=== PATIENT | male | born 1990 | race Caucasian/White ===

== ENCOUNTER → 2017-10-02 10:45 | Outpatient (CLI) | payer OTHER, SELFPAY ==
[2017-10-02 12:03] LABS: Rheumatoid Factor < 10.0 IU/mL (<15)
[2017-10-02 12:04] LABS: Vitamin B12 602 pg/mL (211-911)
[2017-10-03 12:08] LABS: SJOGREN'S Anti-SS-A test < 0.2 AI (0.0-0.9); SJOGREN'S Anti-SS-B test < 0.2 AI (0.0-0.9)
[2017-10-03 16:20] LABS: ANTINUCLEAR ANTIBODIES DIRECT Negative (Negative)
[2017-10-04 08:11] LABS: Albumin 4.4 g/dL (2.9-4.4); Albumin, Ur 29.9 % (.); Alpha-1-Globulin, Ur 1.8 % (.); Alpha-1-Globulins 0.2 g/dL (0.0-0.4); Alpha-2-Globulins 0.6 g/dL (0.4-1.0); Alpha-2-Globulins, Ur 18.9 % (.); Beta Globulin, Ur 25.8 % (.); Cytoplasmic Ab (C-ANCA) <1:20 titer (Neg:<1:20); Gamma Globulin, Ur 23.6 % (.); Immunoglobulin A 157 mg/dL (90-386); Immunoglobulin G 998 mg/dL (700-1600); Immunoglobulin M 45 mg/dL (20-172); M-Spike, Ur % Not Observed % (Not Observed); PROEL- TOTAL PROTEIN 7.2 g/dL (6.0-8.5); Total Protein, Ur 6.4 mg/dL (Not Estab.)
[2017-10-04 08:52] LABS: Perinuclear Ab (P-ANCA) <1:20 titer (Neg:<1:20)
== END ==
PROVIDERS: Visit Provider Psychiatry & Neurology Neurology
DX: G62.9 Polyneuropathy, unspecified (principal); E11.9 Type 2 diabetes mellitus without complications
CPT/HCPCS: 36415; 82607; 82784; 83036; 84165; 84166; 86038; 86235; 86256; 86334; 86335; 86431

== ENCOUNTER → 2017-10-06 09:29 | Outpatient (CLI) | payer OTHER, SELFPAY ==
--- NOTE | 2017-10-06 10:00 | MRI_ITS ---
STUDY: MRI CERVICAL SPINE WITHOUT CONTRAST REASON FOR EXAM: Male, 27 years old. Numbness and tingling bilateral arms and hands for 9 months TECHNIQUE: Standardized fat and water weighted pulse sequences were obtained in the sagittal and axial planes. COMPARISON: None FINDINGS: Normal foramen magnum and brainstem-cervical cord junction. Normal craniovertebral junction. Normal anterior atlantoaxial articulation. Normal odontoid process. There is reversal of the normal cervical lordosis. Normal vertebral bodies and posterior osseous elements. C2-3: Normal endplates. Normal disc height, signal and morphology. Normal central canal and intervertebral neural foramina. C3-4: There is endplate spondylosis. There is disc desiccation with disc space narrowing. There is a left paracentral disc herniation of the protrusion type (axial gradient echo series 7 image 107. Normal central canal. Normal bilateral neural foramen C4-5: There is endplate spondylosis. There is disc desiccation with disc space narrowing. There is an annular bulge. Normal spinal canal and neural foramen C5-6: There is endplate spondylosis. There is disc desiccation with disc space narrowing. Normal spinal canal and neural foramen C6-7: There is endplate spondylosis. There is disc desiccation with disc space narrowing. Normal spinal canal. There is left foraminal stenosis C7-T1: Normal endplates. There is a central disc herniation of the protrusion type (axial gradient echo series 7 image 15. Normal central canal and intervertebral neural foramina. Normal cervical cord. Normal visualized soft tissue structures. MRI/Spine Cervical (Routine) IMPRESSION: Reversal of normal lordosis with multilevel degenerative disease. C3-4 left paracentral disc herniation of the protrusion type. C4-5 annular bulge. C6-7 left foraminal stenosis. C7-T1 Central disc herniation of the protrusion type Electronically Signed: Stan Duenas MD, FACR at 10:39 EST , Service support ,
--- NOTE | 2017-10-06 10:45 | MRI_ITS ---
STUDY: MRI LUMBAR SPINE WITHOUT CONTRAST REASON FOR EXAM: Male, 27 years old. Numbness and pain in the legs and low back and neck. Right hip pain. No known injury TECHNIQUE: Standardized fat and water weighted pulse sequences were obtained in the sagittal and axial planes. COMPARISON: None FINDINGS: T12-L1: Normal endplates. Normal disc height, hydration and morphology. Normal bilateral facet joints. Normal central canal and bilateral lateral recesses. Normal bilateral intervertebral neural foramina. Normal lumbar lordosis. There is no substantial scoliosis. Normal conus medullaris that terminates at the T12-L1 level L1-2: Normal endplates. Normal disc height, hydration and morphology. Normal bilateral facet joints. Normal central canal and bilateral lateral recesses. Normal bilateral intervertebral neural foramina. L2-3: Normal endplates. Normal disc height, hydration and morphology. Normal bilateral facet joints. Normal central canal and bilateral lateral recesses. Normal bilateral intervertebral neural foramina. L3-4: Normal endplates. Normal disc height, hydration and morphology. Normal bilateral facet joints. Normal central canal and bilateral lateral recesses. Normal bilateral intervertebral neural foramina. L4-5: Normal endplates. Normal disc height, hydration and morphology. Normal bilateral facet joints. Normal central canal and bilateral lateral recesses. Normal bilateral intervertebral neural foramina. L5-S1: Normal endplates. Normal disc height, hydration and morphology. Normal bilateral facet joints. Normal central canal and bilateral lateral recesses. Normal bilateral intervertebral neural foramina. Normal visualized sacral ala. Normal visualized paraspinous soft tissue structures. MRI/Spine Lumbar (Routine) IMPRESSION: Normal unenhanced MR examination of the lumbar spine. Electronically Signed: Stan Duenas MD, FACR at 11:11 EST , Service support ,
== END ==
PROVIDERS: Family Provider Family Medicine; PCP Family Medicine; Visit Provider Psychiatry & Neurology Neurology
DX: M54.10 Radiculopathy, site unspecified (principal)
CPT/HCPCS: 72141; 72148

== ENCOUNTER → 2017-12-19 06:57 | Outpatient (CLI) | payer OTHER, SELFPAY ==
--- NOTE | 2017-12-19 10:19 | NEURO ---
NCS and/or EMG Patient Report Ordering Doctor: Shameka Burks DATE OF SERVICE: 12/19/17 This is a bilateral upper extremity nerve conduction study and a left upper extremity EMG performed on this 27-year-old male with numbness and tingling in both arms and legs for 5 months present without trigger, constant but waxing and waning, worse with physical activity. He states that the symptoms are symmetric. There is no history of diabetes or excessive alcohol intake. Emanation demonstrates intact strength, sensation and reflexes. Bilateral upper extremity sensory and motor nerve conduction study is performed. There is mild prolongation of the median motor distal latency on the right with intact amplitude and conduction velocity. The left median motor and sensory responses normal. The bilateral ulnar motor and sensory and radial sensory responses are intact in the bilateral F-wave latencies are preserved from the median and ulnar nerves. Left upper extremity needle electromyography is performed. Muscles evaluated included the first dorsal interosseous, abductor pollicis brevis, brachioradialis, biceps, triceps, and deltoid muscles. All muscles demonstrated normal insertional activity with absence of pathologic spontaneous activity. Motor unit potential recruitment pattern and amplitude was normal in all muscles tested. 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 Otherwise this is a normal study of the upper extremities.
== END ==
PROVIDERS: Family Provider Family Medicine; PCP Family Medicine; Visit Provider Psychiatry & Neurology Neurology
DX: G62.9 Polyneuropathy, unspecified (principal); R20.2 Paresthesia of skin; R20.0 Anesthesia of skin
CPT/HCPCS: 95886; 95912

== ENCOUNTER → 2017-12-20 07:59 | Outpatient (CLI) | payer OTHER, SELFPAY ==
--- NOTE | 2017-12-20 10:07 | NEURO_ITS ---
NCS and/or EMG Patient Report Ordering Doctor: Shameka Burks DATE OF SERVICE: 12/20/17 This is a bilateral lower extremity nerve conduction study and a left lower extremity EMG performed on this 27-year-old male with a history of paresthesias after heavy labor. The otherwise. Previous EMG and nerve conduction of his upper extremities was normal. Bilateral lower extremity sensory and motor nerve conduction studies performed demonstrating normal sural sensory distal latencies and and amplitudes as well as normal bilateral common peroneal motor distal latencies amplitudes and conduction velocities and normal bilateral tibial motor distal latencies amplitudes and conduction velocities. The tibial and common peroneal F waves bilaterally are symmetrically preserved and the H reflex is from the tibial nerves are normal bilaterally. Left lower extremity needle electromyography was performed. Was evaluated included the extensor digitorum brevis, abductor hallucis, medial gastrocnemius , anterior tibialis, vastus lateralis, and vastus medialis. All muscles demonstrated normal insertional activity with absence of pathologic spontaneous activity. Motor unit potential recruitment pattern and amplitude was normal in all muscles tested. Impression: Normal electrophysiologic study of the lower extremities.
== END ==
PROVIDERS: Family Provider Family Medicine; PCP Family Medicine; Visit Provider Psychiatry & Neurology Neurology
DX: G62.9 Polyneuropathy, unspecified (principal); R20.0 Anesthesia of skin; R20.2 Paresthesia of skin
CPT/HCPCS: 95886; 95910